=== PATIENT | female | born 1945 | race Caucasian/White ===

== ENCOUNTER 2018-11-18 16:14 | Emergency (ER) | payer OTHER ==
[~2018-11-18] VITALS: Ht 157.5 cm; Wt 65.8 kg
[~2018-11-18 16:14] MED LIST: LEVO500T20 PO; METR500T PO
[2018-11-18 16:19] VITALS: BP_SYST 109
--- NOTE | 2018-11-18 16:22 | NUR ---
Patient to ER bed 03 to gown for evaluation. Side rails up.
--- NOTE | 2018-11-18 16:35 | NUR ---
PATIENT CAME IN COMPLAINING OF PAIN IN LEFT SIDE OF ABD. PATIENT STATES IT STARTED ABOUT 5 DAYS AGO WITH PAIN INCREASING. PATIENT IS COMPLAINING OF PAIN 7/10 SHARP NON RADIATING. 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 PATIENT NOT COMPLAINING OF NASUEA, VOMITING, CONSTIPATION, OR DIRRHEA. PATIENT DENIES BLOOD IN STOOL. PATIENT ALERT AND ORIENTED X4.
[2018-11-18] MEDS ORDERED: NACL 0.9% 1,000 ML IV ONE (16:37)
--- NOTE | 2018-11-18 16:37 | NUR ---
ER Dr. RIVERA at bedside examining patient.
[2018-11-18] MEDS ORDERED: MORPHINE 4 MG/ML INJ. SYRINGE IVP ONE (16:45)
[2018-11-18 16:51] LABS: BILIRUBIN,URINE NEGATIVE (NEGATIVE); BLOOD, URINE NEGATIVE (NEGATIVE); CLARITY/URINE CLEAR (CLEAR); COLOR,URINE YELLOW (YELLOW); GLUCOSE,URINE NEGATIVE (NEGATIVE); KETONES,URINE NEGATIVE (NEGATIVE); LEUKOCYTE ESTERASE ,URINE NEGATIVE (NEGATIVE); NITRITE, URINE NEGATIVE (NEGATIVE); PH,URINE 5.5 (5.0-8.0); PROTEIN URINE NEGATIVE (NEGATIVE); UROBILINOGEN,URINE 0.2 (0.2-1.0)
--- NOTE | 2018-11-18 17:05 | NUR ---
# 20 gauge angiocath placed to LEFT HAND. Use of asceptic technique. Opsite placed over site. Blood return noted. Blood for lab drawn from site. Flushed with 10 cc of normal saline. No evidence of infiltration noted. Patient tolerated well.
[2018-11-18 18:01] LABS: BASOPHILS # (AUTO) 0.1 K/uL (0.0-0.2); BASOPHILS % (AUTO) 0.7 % (0.0-2.0); EOSINOPHILS # (AUTO) 0.1 K/uL (0.0-0.4); EOSINOPHILS % (AUTO) 1.1 % (0.0-4.0); HEMATOCRIT 38.6 % (36-48); LYMPHOCYTES # (AUTO) 1.9 K/uL (1.0-5.5); LYMPHOCYTES % (AUTO) 19.8 % (20.5-51.5); MEAN CORPUSCULAR HEMOGLOBIN 32 pg (27-31); MEAN CORPUSCULAR HGB CONC 34 % (32-36); MEAN CORPUSCULAR VOLUME 96 fL (79.0-98.0); MONOCYTES # (AUTO) 0.7 K/uL (0.0-1.0); NEUTROPHILS % (AUTO) 71.4 % (40.0-70.0); PLATELET COUNT (AUTO) 324 K/uL (130-430); RED BLOOD CELL COUNT(AUTO) 4.04 MIL/uL (4.2-6.2); RED CELL DISTRIBUTION WIDTH 12.9 % (9.0-15.0); WHITE BLOOD COUNT (AUTO) 9.8 K/uL (4.8-10.8)
[2018-11-18 18:07] LABS: ANION GAP 7 (5-15); CALCIUM 9.7 mg/dL (8.4-11.0); CHLORIDE 107 mmol/L (98-107); CREATININE 0.58 mg/dL (0.55-1.30); GLUCOSE 101 mg/dL (70-99); POTASSIUM 3.7 mmol/L (3.5-5.1); SODIUM SERUM 138 mmol/L (136-145); UREA NITROGEN, BLOOD 14 mg/dL (8-21)
[2018-11-18 18:11] LABS: ALANINE AMINOTRANSFERASE 19 U/L (12-78); ALBUMIN 3.4 g/dL (3.4-4.8); ASPARTATE AMINOTRANSFERASE 14 U/L (10-37); LIPASE 155 U/L (73-393); TOTAL BILIRUBIN 0.4 mg/dL (0.0-1.0)
--- NOTE | 2018-11-18 18:25 | NUR ---
PATIENT HAD TO USE RESTROOM. PATIENT ASSISTED BACK TO BED AND HOOKED BACK UP.
[2018-11-18] MEDS ORDERED: IOHEXOL 100 ML IV ONE (18:31)
--- NOTE | 2018-11-18 18:43 | NUR ---
PATIENT LEFT TO CT VIA WHEELCHAIR IN STABLE CONDITION.
--- NOTE | 2018-11-18 18:55 | NUR ---
PATIENT BACK FROM CT IN STABLE CONDITION.
[2018-11-18 18:57] LABS: PROTHROMBIN TIME 10.1 SECS (9.5-12.5)
--- NOTE | 2018-11-18 19:09 | NUR ---
ENDORSED CARE TO TERE RILEY.
--- NOTE | 2018-11-18 19:30 | NUR ---
Pt is resting quietly in bed, and pain has improved after Morphine administration. Will continue to monitor.
--- NOTE | 2018-11-18 20:20 | NUR ---
Pt has been medicated with Toradol for increasing pain and antibiotics. Dr. Montes will discharge after patient antibiotics.
[2018-11-18] MEDS ORDERED: KETOROLAC TROMETHAMINE 30 MG VIAL IVP ONE (20:30)
[2018-11-18] MEDS ORDERED: LEVOFLOXACIN 500 MG/D5W 100 ML IV ONE (20:30)
[2018-11-18] MEDS ORDERED: metroNIDAZOLE 500 mg/NS 100 ML IV ONE (20:30)
--- NOTE | 2018-11-18 21:10 | NUR ---
Dr Montes at bedside with patient.
[2018-11-18 22:47] VITALS: BP_SYST 127
--- NOTE | 2018-11-18 22:53 | NUR ---
Patient given written and verbal discharge instructions by Dr. Montes and verbalizes understanding. ER MD discussed with patient the results and treatment provided. Patient in stable condition. ID arm band removed. IV catheter removed intact and dressing applied, no active bleeding. Rx of Cipro and Flagyl given. Patient educated on pain management and to follow up with PMD. Pain Scale 0. Opportunity for questions provided and answered. Medication side effect fact sheet provided.
== END 2018-11-18 22:47 | disposition home or self-care (01) ==
LOC: SED 16:14
DX: K57.92 Diverticulitis of intestine, part unspecified, without perforation or abscess without bleeding (principal); R03.0 Elevated blood-pressure reading, without diagnosis of hypertension; Z85.3 Personal history of malignant neoplasm of breast; Z91.040 Latex allergy status; Z79.899 Other long term (current) drug therapy
CPT/HCPCS: 36415; 74177; 80053; 81003; 83605; 83690; 85025; 85610; 87040; 96365; 96368; 96375; 99284; J1885; J1956; J2270; J3490; J7030; Q9967

== ENCOUNTER 2020-02-21 20:52 | Emergency (ER) | payer OTHER ==
[~2020-02-21] VITALS: Ht 157.5 cm; Wt 64.4 kg
[2020-02-21 21:18] VITALS: BP_SYST 110
[2020-02-22 01:08] VITALS: BP_SYST 113
== END 2020-02-22 01:08 | disposition home or self-care (01) ==
LOC: SED 20:52
DX: R51.9 Headache, unspecified (principal); H57.11 Ocular pain, right eye; Z85.3 Personal history of malignant neoplasm of breast; Z91.040 Latex allergy status
CPT/HCPCS: 70450-TC; 70480; 99285

== ENCOUNTER 2020-04-25 18:33 | Emergency (ER) | payer OTHER ==
[~2020-04-25] VITALS: Ht 162.6 cm; Wt 59.9 kg
[2020-04-25 18:46] VITALS: BP_SYST 158
--- NOTE | 2020-04-25 18:46 | NUR ---
Patient to ER bed 08 to gown for evaluation. Side rails up.
--- NOTE | 2020-04-25 18:50 | NUR ---
PT. BIB FAMILY WHEELED INTO ER ROOM ABLE TO STAND AND SIT WITHOUT ASSISTANCE CC MECAHNICAL TRIP AND FALL IN FRONT YARD PT. LANDED ON HER FACE WITH FACIAL PAIN 1 CM LACERATION TO BRIDGE OF NOSE WITH A 2CM ABRASION BELOW THE LEFT EYE PT. HAS THROBBING NON RADIATING HEADACHE 6/10 PAIN SINCE FALL PT. HAS A HISTORY OF DIVERTICULITUS AND AN ALLERGY TO PENICILLIN PT. IN BED IN LOWEST POSITION
--- NOTE | 2020-04-25 18:52 | NUR ---
CANDY Bolton at bedside examining patient.
[2020-04-25] MEDS ORDERED: DIPH-TET-PERTUS Vaccine 0.5 ML VIAL (ADACEL) I.M. ONE (19:00)
--- NOTE | 2020-04-25 20:25 | NUR ---
DR BRITT AT BEDSIDE TO RE-EVALUATE PT STATUS
[2020-04-25] MEDS ORDERED: IBUPROFEN 600 MG TABLET PO ONE (20:45)
[2020-04-25] MEDS ORDERED: IBUPROFEN 600 MG TABLET ONE (20:53)
[2020-04-25 21:20] VITALS: BP_SYST 137
--- NOTE | 2020-04-25 21:20 | NUR ---
Patient given written and verbal discharge instructions and verbalizes understanding. DR. LORENZA GUPTA MD discussed with patient the results and treatment provided. Patient in stable condition. ID arm band removed. Rx of IBUPROFEN given. Patient educated on pain management and to follow up with PMD. Pain Scale 0/10. Opportunity for questions provided and answered. Medication side effect fact sheet provided.
== END 2020-04-25 21:20 | disposition home or self-care (01) ==
LOC: SED 18:33
DX: S02.2XXA Fracture of nasal bones, initial encounter for closed fracture (principal); S00.83XA Contusion of other part of head, initial encounter; Z88.0 Allergy status to penicillin; Z91.040 Latex allergy status; W01.198A Fall on same level from slipping, tripping and stumbling with subsequent striking against other object, initial encounter; Y93.89 Activity, other specified; Y92.89 Other specified places as the place of occurrence of the external cause; Y99.8 Other external cause status
CPT/HCPCS: 70450-TC; 70486-TC; 76376; 90715; 99285

== ENCOUNTER 2020-08-01 19:35 | Emergency (ER) | payer OTHER ==
[~2020-08-01] VITALS: Ht 162.6 cm; Wt 63.5 kg
[2020-08-01 19:40] VITALS: BP_SYST 128
[2020-08-01] MEDS ORDERED: ONDA8TAB6 PO (19:59)
[2020-08-01] MEDS ORDERED: MECL-97 PO (19:59)
[2020-08-01] MEDS ORDERED: IBUP-1969 PO (19:59)
[2020-08-01] MEDS ORDERED: HYDR-3917 PO (19:59)
[2020-08-01] MEDS ORDERED: KETOROLAC TROMETHAMINE 60 MG/2 ML VIAL IM ONE (20:00)
[2020-08-01 20:36] VITALS: BP_SYST 128
== END 2020-08-01 20:36 | disposition home or self-care (01) ==
LOC: SED 19:35
DX: M54.5 Low back pain (principal); Z88.0 Allergy status to penicillin; Z91.040 Latex allergy status; Z79.899 Other long term (current) drug therapy; W18.39XA Other fall on same level, initial encounter; Y93.89 Activity, other specified; Y92.89 Other specified places as the place of occurrence of the external cause; Y99.8 Other external cause status
CPT/HCPCS: 96372; 99283; J1885

== ENCOUNTER 2020-09-06 22:41 | Emergency (ER) | payer OTHER ==
[~2020-09-06] VITALS: Ht 157.5 cm; Wt 65.3 kg
[~2020-09-06 22:41] MED LIST changes: +HYDR-3917 PO; +IBUP-1969 PO; +MECL-103 PO; +ONDA8TAB6 PO
--- NOTE | 2020-09-06 22:45 | NUR ---
Patient to ER bed 06 to gown for evaluation. Side rails up.
--- NOTE | 2020-09-06 22:47 | NUR ---
PATIENT BROUGHT IN AMBULATORY , AO X 4 COMPLAINING OF LEFT HIP PAIN RADIATING TO THE LEFT LEG ONGOING FOR 3 DAYS AND WORSENING TODAY. PATIENT ACCOMPANIED BY . PAIN 5/10. NO OTHER COMPLAINTS/INJURIE SPER PATIENT OR NOTED.
[2020-09-06 22:52] VITALS: BP_SYST 169
--- NOTE | 2020-09-06 22:54 | NUR ---
ER at bedside examining patient.
[2020-09-06] MEDS ORDERED: DIPHENHYDRAMINE INJ 50 MG/ML VIAL IM ONE (23:30)
[2020-09-06] MEDS ORDERED: fentaNYL CITRATE/PF 100 MCG/2 ML AMP IM ONE (23:30)
[2020-09-06] MEDS ORDERED: NAPR-1172 PO (23:39)
[2020-09-06] MEDS ORDERED: NORT10CA PO (23:39)
[2020-09-06] MEDS ORDERED: KETOROLAC TROMETHAMINE 30 MG VIAL IM ONE (23:45)
--- NOTE | 2020-09-06 23:48 | NUR ---
medicated per md orders.
[2020-09-07 00:43] VITALS: BP_SYST 169
--- NOTE | 2020-09-07 00:43 | NUR ---
Patient given written and verbal discharge instructions and verbalizes understanding. ER MD discussed with patient the results and treatment provided. Patient in stable condition. ID arm band removed. Rx of naproxen and nortriptyline hcl given. Patient educated on pain management and to follow up with PMD. Pain Scale 0/10 Opportunity for questions provided and answered. Medication side effect fact sheet provided.
== END 2020-09-07 00:43 | disposition home or self-care (01) ==
LOC: SED 22:41
DX: M54.32 Sciatica, left side (principal); I10 Essential (primary) hypertension; Z88.2 Allergy status to sulfonamides
CPT/HCPCS: 96372; 99284; J1200; J1885; J3010

== ENCOUNTER 2021-03-06 18:58 | Emergency (ER) | payer OTHER ==
[~2021-03-06] VITALS: Ht 152.4 cm; Wt 57.6 kg
[~2021-03-06 18:58] MED LIST changes: +NAPR-1172 PO; +NORT10CA PO
--- NOTE | 2021-03-06 19:25 | NUR ---
Patient BIB by family from home. C/O abdominal pain x 3 days. Patient reported, had LUQ abdominal pain, no diarrhea or vomitting. A/O,X4, LUQ abdominal pain, pain rate 7/10.
[2021-03-06 19:28] VITALS: BP_SYST 126
--- NOTE | 2021-03-06 19:28 | NUR ---
ER Dr. Lowry at bedside examining patient.
--- NOTE | 2021-03-06 20:01 | NUR ---
Returned from radiology, back to [facility].
[2021-03-06 20:18] LABS: BILIRUBIN,URINE NEGATIVE (NEGATIVE); BLOOD, URINE NEGATIVE (NEGATIVE); CLARITY/URINE CLEAR (CLEAR); COLOR,URINE YELLOW (YELLOW); GLUCOSE,URINE NEGATIVE (NEGATIVE); KETONES,URINE NEGATIVE (NEGATIVE); LEUKOCYTE ESTERASE ,URINE NEGATIVE (NEGATIVE); NITRITE, URINE NEGATIVE (NEGATIVE); PROTEIN URINE NEGATIVE (NEGATIVE); UROBILINOGEN,URINE 0.2 (0.2-1.0)
--- NOTE | 2021-03-06 20:20 | NUR ---
Blood for labwork drawn from [facility]. Patient tolerated well.
[2021-03-06 20:29] LABS: BASOPHILS # (AUTO) 0.1 K/uL (0.0-0.2); BASOPHILS % (AUTO) 0.8 % (0.0-2.0); EOSINOPHILS # (AUTO) 0.1 K/uL (0.0-0.4); EOSINOPHILS % (AUTO) 1.8 % (0.0-4.0); HEMATOCRIT 33.7 % (36-48); HEMOGLOBIN 11.4 g/dL (12.0-16.0); LYMPHOCYTES # (AUTO) 2.2 K/uL (1.0-5.5); LYMPHOCYTES % (AUTO) 31.9 % (20.5-51.5); MEAN CORPUSCULAR HEMOGLOBIN 33 pg (27-31); MEAN CORPUSCULAR HGB CONC 34 % (32-36); MEAN CORPUSCULAR VOLUME 96 fL (79.0-98.0); MONOCYTES # (AUTO) 0.5 K/uL (0.0-1.0); MONOCYTES % (AUTO) 7.7 % (1.7-9.3); NEUTROPHILS # (AUTO) 4.1 K/uL (1.8-7.7); NEUTROPHILS % (AUTO) 57.8 % (40.0-70.0); PLATELET COUNT (AUTO) 314 K/uL (130-430); RED CELL DISTRIBUTION WIDTH 13.7 % (9.0-15.0)
[2021-03-06 20:47] LABS: ANION GAP 11 (5-15); CALCIUM 9.5 mg/dL (8.4-11.0); CHLORIDE 104 mmol/L (98-107); CREATININE 0.61 mg/dL (0.55-1.30); GLUCOSE 99 mg/dL (70-99); POTASSIUM 3.4 mmol/L (3.5-5.1); SODIUM SERUM 139 mmol/L (136-145); UREA NITROGEN, BLOOD 21 mg/dL (8-21)
[2021-03-06 20:53] LABS: ALANINE AMINOTRANSFERASE 19 U/L (12-78); ALBUMIN 3.5 g/dL (3.4-4.8); AMYLASE 63 U/L (0-100); ASPARTATE AMINOTRANSFERASE 17 U/L (10-37); LACTATE DEHYDROGENASE 178 U/L (81-234); LIPASE 194 U/L (73-393); TOTAL BILIRUBIN 0.4 mg/dL (0.0-1.0)
[2021-03-06 21:09] LABS: PROTHROMBIN TIME 10.4 SECS (9.5-12.5)
[2021-03-06] MEDS ORDERED: IBUP-1969 PO (21:14)
[2021-03-06] MEDS ORDERED: AMOX-423 PO (21:14)
[2021-03-06] MEDS ORDERED: AMOXICILLIN/CLAVULANATE POTASSIUM 500 MG TABLET PO ONE (21:15)
[2021-03-06] MEDS ORDERED: IBUPROFEN 600 MG TABLET PO ONE (21:15)
[2021-03-06 23:05] LABS: C-REACTIVE PROTEIN QUANT 0.4 mg/dL (0-0.5)
[2021-03-06 23:37] VITALS: BP_SYST 126
--- NOTE | 2021-03-06 23:37 | NUR ---
Patient given written and verbal discharge instructions and verbalizes understanding. ER MD discussed with patient the results and treatment provided. Patient in stable condition. ID arm band removed. Rx of Augmentin and Ibuprofen given. Patient educated on pain management and to follow up with PMD. Pain Scale 1/10. Opportunity for questions provided and answered. Medication side effect fact sheet provided.
== END 2021-03-06 23:37 | disposition home or self-care (01) ==
LOC: SED 18:58
DX: R10.32 Left lower quadrant pain (principal); Z88.0 Allergy status to penicillin; Z88.2 Allergy status to sulfonamides; Z91.038 Other insect allergy status; Z79.899 Other long term (current) drug therapy
CPT/HCPCS: 36415; 76376; 80053; 81003; 82150; 83605; 83615; 83690; 84484; 85025; 85610-TC; 85730-TC; 86140; 99284

== ENCOUNTER 2022-07-10 14:26 | Emergency (ER) | payer OTHER ==
[~2022-07-10] VITALS: Ht 157.5 cm; Wt 54.4 kg
[~2022-07-10 14:26] MED LIST changes: +AMOX-423 PO
--- NOTE | 2022-07-10 14:28 | NUR ---
Pt brought by , A&appropiate to age, pt presents to ER with vaginal pain, skin pink and warm, cap refill <3, VSS, will cont to monitor.
[2022-07-10 14:51] VITALS: BP_SYST 111
[2022-07-10] MEDS ORDERED: HYDROcodone/ACETAMIN 5-325 MG TAB (NORCO/ VICODIN) PO ONE (16:15)
[2022-07-10] MEDS ORDERED: IBUPROFEN 600 MG TABLET PO ONE (16:15)
[2022-07-10 16:57] LABS: BASOPHILS # (AUTO) 0.1 K/uL (0.0-0.2); BASOPHILS % (AUTO) 0.7 % (0.0-2.0); EOSINOPHILS # (AUTO) 0.1 K/uL (0.0-0.4); EOSINOPHILS % (AUTO) 1.1 % (0.0-4.0); HEMOGLOBIN 13.2 g/dL (12.0-16.0); LYMPHOCYTES # (AUTO) 1.8 K/uL (1.0-5.5); LYMPHOCYTES % (AUTO) 23.1 % (20.5-51.5); MEAN CORPUSCULAR HEMOGLOBIN 32 pg (27-31); MEAN CORPUSCULAR HGB CONC 34 % (32-36); MEAN CORPUSCULAR VOLUME 95 fL (79.0-98.0); MONOCYTES # (AUTO) 0.4 K/uL (0.0-1.0); MONOCYTES % (AUTO) 5.2 % (1.7-9.3); NEUTROPHILS # (AUTO) 5.5 K/uL (1.8-7.7); NEUTROPHILS % (AUTO) 69.9 % (40.0-70.0); PLATELET COUNT (AUTO) 336 K/uL (130-430); RED BLOOD CELL COUNT(AUTO) 4.13 MIL/uL (4.2-6.2); RED CELL DISTRIBUTION WIDTH 12.9 % (9.0-15.0); WHITE BLOOD COUNT (AUTO) 7.9 K/uL (4.8-10.8)
[2022-07-10 16:59] LABS: ANION GAP 7 (5-15); CALCIUM 9.1 mg/dL (8.4-11.0); CHLORIDE 107 mmol/L (98-107); CREATININE 0.77 mg/dL (0.55-1.30); GLUCOSE 113 mg/dL (70-99); UREA NITROGEN, BLOOD 23 mg/dL (8-21)
[2022-07-10 17:05] LABS: ALANINE AMINOTRANSFERASE 19 U/L (12-78); ALBUMIN 3.6 g/dL (3.4-4.8); ASPARTATE AMINOTRANSFERASE 14 U/L (10-37); C-REACTIVE PROTEIN QUANT 0.6 mg/dL (0-0.5); TOTAL BILIRUBIN 0.3 mg/dL (0.0-1.0)
--- NOTE | 2022-07-10 19:34 | NUR ---
Dr Lowry given results to patient
[2022-07-10 19:39] LABS: BILIRUBIN,URINE NEGATIVE (NEGATIVE); BLOOD, URINE 1+ (NEGATIVE); CLARITY/URINE SL CLOUDY (CLEAR); COLOR,URINE YELLOW (YELLOW); GLUCOSE,URINE NEGATIVE (NEGATIVE); KETONES,URINE NEGATIVE (NEGATIVE); LEUKOCYTE ESTERASE ,URINE NEGATIVE (NEGATIVE); NITRITE, URINE POSITIVE (NEGATIVE); PROTEIN URINE NEGATIVE (NEGATIVE); UROBILINOGEN,URINE 0.2 (0.2-1.0)
[2022-07-10 20:12] LABS: BACTERIA,URINE MANY /HPF (None Seen); RBC,URINE 20-50 /HPF (0-3); WBC,URINE 0-3 /HPF (0-3)
[2022-07-10] MEDS ORDERED: NITR-85 PO (20:13)
[2022-07-10] MEDS ORDERED: PHEN-726 PO (20:14)
[2022-07-10] MEDS ORDERED: cefTRIAXone 1 GM in LIDOCAINE 1%, 20 ML MDV 2.1 ML IM ONE (20:15)
--- NOTE | 2022-07-10 20:25 | NUR ---
Patient to ER bed 05 to gown for evaluation. Side rails up.
--- NOTE | 2022-07-10 20:44 | NUR ---
DR. ABBOTT AT BEDSIDE WITH PATIENT FOR MSE.
--- NOTE | 2022-07-10 21:12 | NUR ---
Patient given written and verbal discharge instructions and verbalizes understanding. ER MD discussed with patient the results and treatment provided. Patient in stable condition. ID arm band removed. Rx of MACROBID, AND PYRIDIUM given. Patient educated on pain management and to follow up with PMD. Opportunity for questions provided and answered. Medication side effect fact sheet provided.
== END 2022-07-10 21:11 | disposition home or self-care (01) ==
LOC: SED 14:26
DX: N39.0 Urinary tract infection, site not specified (principal); R10.30 Lower abdominal pain, unspecified; R30.0 Dysuria; N81.4 Uterovaginal prolapse, unspecified; Z88.0 Allergy status to penicillin; Z88.2 Allergy status to sulfonamides; Z91.040 Latex allergy status; Z79.899 Other long term (current) drug therapy
CPT/HCPCS: 99283; 80053; 81000; 85025; 86140; 87086; 36415; 96372; 83605; J0696; J2001